=== PATIENT | male | born 1950 | race Hispanic/Latino ===

== ENCOUNTER 2022-04-28 14:41 | Emergency (ER) | payer MEDICARE ==
[~2022-04-28] VITALS: Ht 165.1 cm; Wt 54.4 kg
[2022-04-28 14:48] VITALS: BP 148/62
[2022-04-28 15:18] LABS: APPEARANCE,URINE CLOUDY (CLEAR); BILIRUBIN,URINE NEGATIVE (NEGATIVE); COLOR,URINE YELLOW (YELLOW); GLUCOSE, URINE (UA) NEGATIVE (NEGATIVE); KETONES,URINE NEGATIVE (NEGATIVE); LEUKOCYTE ESTERASE ,URINE LARGE (NEGATIVE); NITRATE,URINE NEGATIVE (NEGATIVE); OCCULT BLOOD,URINE MODERATE (NEGATIVE); PROTEIN,URINE 100 mg/dL (NEGATIVE); UROBILINOGEN,URINE 0.2 mg/dL (0.2-1.0)
[2022-04-28] MEDS ORDERED: CEPH500B PO (15:22)
[2022-04-28 15:26] LABS: BACTERIA,URINE Moderate /HPF (None Seen); SQUAMOUS EPITHELIAL CELL,UR Rare /HPF (0-2); WBC,URINE 51-100 /HPF (0-1)
[2022-04-28] MEDS ORDERED: CEFTRIAXONE 1G VIAL IM ONE (15:30)
== END 2022-04-28 16:50 | disposition home or self-care (01) ==
LOC: EDH 14:41
DX: N39.0 Urinary tract infection, site not specified (principal); E11.9 Type 2 diabetes mellitus without complications; E78.00 Pure hypercholesterolemia, unspecified; Z98.890 Other specified postprocedural states
CPT/HCPCS: 99284; 87077; 87088; 87186; 81001; 51702; 96372; J0696

== ENCOUNTER 2022-06-03 16:58 | Emergency (ER) | payer MEDICARE ==
[~2022-06-03 16:58] MED LIST: CEPH500B PO
[2022-06-03 17:02] VITALS: BP 162/51
[2022-06-03 17:41] LABS: APPEARANCE,URINE CLOUDY (CLEAR); BILIRUBIN,URINE NEGATIVE (NEGATIVE); COLOR,URINE LIGHT-YELLOW (YELLOW); GLUCOSE, URINE (UA) NEGATIVE (NEGATIVE); KETONES,URINE NEGATIVE (NEGATIVE); LEUKOCYTE ESTERASE ,URINE 500 Leu/uL (NEGATIVE); NITRATE,URINE NEGATIVE (NEGATIVE); OCCULT BLOOD,URINE MODERATE (NEGATIVE); PH,URINE 6.5 (5.0-8.0); PROTEIN,URINE 30 mg/dL (NEGATIVE); UROBILINOGEN,URINE 0.2 mg/dL (0.2-1.0)
[2022-06-03 17:47] LABS: BACTERIA,URINE FEW /HPF (None Seen); MUCUS,URINE RARE LPF (None Seen); RBC,URINE >100 /HPF (0-1); WBC,URINE >100 /HPF (0-1); YEAST,URINE BUDDING FEW /HPF (None Seen)
[2022-06-03] MEDS ORDERED: PHEN-847 PO (17:56)
[2022-06-03] MEDS ORDERED: CEPH500B PO (17:56)
[2022-06-03] MEDS ORDERED: CEFTRIAXONE 1G VIAL IM ONE (18:00)
[2022-06-03] MEDS ORDERED: CEFTRIAXONE 1G VIAL ONE (18:04)
== END 2022-06-03 18:32 | disposition home or self-care (01) ==
LOC: EDH 16:58
DX: N41.9 Inflammatory disease of prostate, unspecified (principal); N39.0 Urinary tract infection, site not specified; R33.9 Retention of urine, unspecified; E11.9 Type 2 diabetes mellitus without complications; N41.1 Chronic prostatitis; E78.00 Pure hypercholesterolemia, unspecified; Z98.890 Other specified postprocedural states
CPT/HCPCS: 96372; 99284; 87077 ×2; 87088; 87186 ×2; 81001; 51702; J0696; 96374

== ENCOUNTER 2022-06-20 22:56 | Emergency (ER) | payer MEDICARE ==
[~2022-06-20] VITALS: Ht 165.1 cm; Wt 54.4 kg
[~2022-06-20 22:56] MED LIST changes: +PHEN-847 PO
[2022-06-21 01:47] LABS: APPEARANCE,URINE CLOUDY (CLEAR); BILIRUBIN,URINE NEGATIVE (NEGATIVE); COLOR,URINE LIGHT-ORANGE (YELLOW); GLUCOSE, URINE (UA) TRACE mg/dL (NEGATIVE); KETONES,URINE NEGATIVE (NEGATIVE); LEUKOCYTE ESTERASE ,URINE 500 Leu/uL (NEGATIVE); NITRATE,URINE NEGATIVE (NEGATIVE); OCCULT BLOOD,URINE LARGE (NEGATIVE); PH,URINE 7.5 (5.0-8.0); PROTEIN,URINE 30 mg/dL (NEGATIVE); UROBILINOGEN,URINE 0.2 mg/dL (0.2-1.0)
[2022-06-21 01:51] LABS: BACTERIA,URINE FEW /HPF (None Seen); RBC,URINE TNTC /HPF (0-1); WBC,URINE TNTC /HPF (0-1)
[2022-06-21 03:52] VITALS: BP 118/78
== END 2022-06-21 03:53 | disposition home or self-care (01) ==
LOC: EDH 22:56
DX: T83.091A Other mechanical complication of indwelling urethral catheter, initial encounter (principal); R33.8 Other retention of urine; I10 Essential (primary) hypertension; E11.9 Type 2 diabetes mellitus without complications; Y83.8 Other surgical procedures as the cause of abnormal reaction of the patient, or of later complication, without mention of misadventure at the time of the procedure; Y92.89 Other specified places as the place of occurrence of the external cause
CPT/HCPCS: 51702; 81001; 87077; 87088; 87186

== ENCOUNTER 2022-07-18 10:39 | Emergency (ER) | payer MEDICARE ==
[~2022-07-18] VITALS: Ht 165.1 cm; Wt 59.0 kg
[2022-07-18 11:45] LABS: HEMATOCRIT 42.3 % (42-54); MEAN CORPUSCULAR HEMOGLOBIN 26.6 pg (27.0-33.0); MEAN CORPUSCULAR HGB CONC 32.2 g/dL (32.0-36.0); MEAN CORPUSCULAR VOLUME 82.8 fL (79-99); RED BLOOD CELL COUNT(AUTO) 5.11 MIL/uL (4.50-6.20); RED CELL DISTRIBUTION WIDTH 14.3 % (11.0-15.5); WHITE BLOOD COUNT (AUTO) 5.9 K/uL (4.8-10.8)
[2022-07-18 11:56] LABS: ALBUMIN 3.9 g/dL (3.5-5.0); CREATININE 0.9 mg/dL (0.5-1.5); POTASSIUM 3.5 mmol/L (3.5-5.1); TOTAL PROTEIN, SERUM 7.9 g/dL (6.0-8.3)
[2022-07-18 12:49] LABS: APPEARANCE,URINE CLEAR (CLEAR); BILIRUBIN,URINE NEGATIVE (NEGATIVE); COLOR,URINE COLORLESS (YELLOW); GLUCOSE, URINE (UA) NEGATIVE (NEGATIVE); KETONES,URINE NEGATIVE (NEGATIVE); LEUKOCYTE ESTERASE ,URINE 250 Leu/uL (NEGATIVE); NITRATE,URINE NEGATIVE (NEGATIVE); OCCULT BLOOD,URINE LARGE (NEGATIVE); PROTEIN,URINE NEGATIVE (NEGATIVE); UROBILINOGEN,URINE 0.2 mg/dL (0.2-1.0)
[2022-07-18 13:40] LABS: BACTERIA,URINE Rare /HPF (None Seen); SQUAMOUS EPITHELIAL CELL,UR 0-2 /HPF (0-2)
[2022-07-18 17:27] VITALS: BP 154/59
== END 2022-07-18 17:33 | disposition home or self-care (01) ==
LOC: EDH 10:39
DX: T83.011A Breakdown (mechanical) of indwelling urethral catheter, initial encounter (principal); R33.9 Retention of urine, unspecified; E11.9 Type 2 diabetes mellitus without complications; E78.00 Pure hypercholesterolemia, unspecified; I10 Essential (primary) hypertension; Y83.8 Other surgical procedures as the cause of abnormal reaction of the patient, or of later complication, without mention of misadventure at the time of the procedure; Y92.89 Other specified places as the place of occurrence of the external cause
CPT/HCPCS: 36415; 51702; 80053; 81001; 82948; 85027; 87077; 87088; 87186

== ENCOUNTER 2022-08-17 10:10 | Emergency (ER) | payer MEDICARE ==
[~2022-08-17] VITALS: Ht 165.1 cm; Wt 68.0 kg
[2022-08-17] MEDS ORDERED: PHENAZOPYRIDINE HCL 200 MG TABLET PO STA (10:40)
[2022-08-17 11:33] LABS: APPEARANCE,URINE TURBID (CLEAR); BILIRUBIN,URINE NEGATIVE (NEGATIVE); COLOR,URINE YELLOW (YELLOW); GLUCOSE, URINE (UA) NEGATIVE (NEGATIVE); KETONES,URINE NEGATIVE (NEGATIVE); LEUKOCYTE ESTERASE ,URINE 500 Leu/uL (NEGATIVE); NITRATE,URINE NEGATIVE (NEGATIVE); OCCULT BLOOD,URINE LARGE (NEGATIVE); PROTEIN,URINE 30 mg/dL (NEGATIVE); UROBILINOGEN,URINE 0.2 mg/dL (0.2-1.0)
[2022-08-17 11:42] LABS: BACTERIA,URINE FEW /HPF (None Seen); MUCUS,URINE RARE LPF (None Seen); RBC,URINE TNTC /HPF (0-1); SQUAMOUS EPITHELIAL CELL,UR RARE /HPF (0-2); WBC,URINE TNTC /HPF (0-1); YEAST,URINE BUDDING MANY /HPF (None Seen)
[2022-08-17] MEDS ORDERED: PHEN-846 PO (11:55)
[2022-08-17] MEDS ORDERED: CIPR-279 PO (11:55)
[2022-08-17 12:11] VITALS: BP 126/61
== END 2022-08-17 12:17 | disposition home or self-care (01) ==
LOC: EDH 10:10
DX: T83.018A Breakdown (mechanical) of other urinary catheter, initial encounter (principal); N39.0 Urinary tract infection, site not specified; E11.9 Type 2 diabetes mellitus without complications; E78.00 Pure hypercholesterolemia, unspecified; I10 Essential (primary) hypertension; Z85.46 Personal history of malignant neoplasm of prostate; Z98.890 Other specified postprocedural states
CPT/HCPCS: 51702; 81001; 87088